=== PATIENT | female | born 1975 | race Caucasian/White ===

== ENCOUNTER → 2017-06-08 | Day surgery (SDC) | payer MEDICAID ==
[~2017-06-08] VITALS: Ht 157.5 cm; Wt 64.9 kg
[~2017-06-08] MED LIST: AMITRIPTYLINE100 MG PO; CYCLOBENZAPRINE10 MG PO; GABAPENTIN300 MG PO; HYDROCODONE-APA1 TA2 PO; LORTAB 5/3251 TAB PO; NEURONTIN600 M1 PO; NORTRIPTYLINE25 MG PO; TRAMADOL50 M1 PO
[2017-06-08 15:51] VITALS: BP 108/62
[2017-06-08 16:18] VITALS: BP 108/62
[2017-06-08 16:22] VITALS: BP 149/63
--- NOTE | 2017-06-08 16:24 | Procedure Note ---
Procedure detail Date of procedure: 06/08/17 Anesthesiologist: Ever Laurent Complications: None Pre-procedure diagnosis: Degenerative disease cervical spine multiple levels. Cervical radiculopathy symptoms. Post-procedure diagnosis: Same. Indications for procedure: Very pleasant 42-year-old white female comes our procedure clinic today for repeat caudal epidural steroid injection. Patient has consistent cervical neck pain that she describes as constant, dull, aching with bilateral arm radicular symptoms at times. Patient has responded very well to previous cervical epidural steroid injections. Procedure detail: Procedure:Cervical epidural steroid injection Informed consent was obtained and the risks and benefits of the procedure were explained to the patient. The patient was taken to the procedure room and noninvasive monitors placed, including noninvasive blood pressure cuff and pulse oximeter. The neck was prepped using Betadine as a cleansing solution. The C6-C7 interspace was palpated. The skin and subcutaneous tissues were anesthetized using lidocaine 1.5% and a 25-gauge needle. After this an 18-gauge Touhy epidural needle was placed into the C6-C7 interspace and advanced using loss of resistance to air until the epidural space was encountered. After confirmation of needle placement in the epidural space using fluoroscopy guidance, a solution containing lidocaine 1.5%, 4 mL and Depo-Medrol 80 mg was incrementally injected into the cervical epidural space.~ The patient tolerated the procedure well with no complications. The patient was observed in the Pain Clinic and then discharged home neurologically intact. Plan and disposition: Patient for evaluated to minutes post procedure. She is doing very well. She returns to further evaluation. at 1644
[2017-06-08 16:28] VITALS: BP 107/51
== END ==
LOC: PM 15:45
PROC: 3E0R3BZ Introduction of Anesthetic Agent into Spinal Canal, Percutaneous Approach (ICD-10-PCS; principal; 2017-06-08)
PROC: 3E0R33Z Introduction of Anti-inflammatory into Spinal Canal, Percutaneous Approach (ICD-10-PCS; 2017-06-08)
DX: M50.10 Cervical disc disorder with radiculopathy, unspecified cervical region (principal)
CPT/HCPCS: J1040; Q9966

== ENCOUNTER → 2017-07-22 | Outpatient (CLI) | payer MEDICAID ==
--- NOTE | 2017-07-23 11:20 | RADIOLOGY REPORT PS360 ---
MRI-C-SPINE W/O HISTORY: Right-sided neck and arm pain and numbness with limited range of motion of the neck CERVICAL PAIN ORDERING PHYSICIAN: BRYCE MCDOWELL CRNA PATIENT AGE: 42 years COMPARISON: 05/19/2016 TECHNIQUE: Standard multiplanar multiecho sequences are performed without contrast. 3-D MIP and myelographic images are also rendered and reviewed FINDINGS: Unremarkable craniocervical junction. Slight reversal the cervical lordosis. C2-C3: Minimal prominence of the posterior longitudinal ligament without impingement. C3-C4: There is a small central/left paracentral disc protrusion/herniation abutting the anterior aspect of the cord centrally and on the left. This is slightly larger when compared to the previous exam. There is canal stenosis at this level at 9 mm. C4-C5: Small central disc protrusion similar to the previous exam of face in the cord centrally with canal stenosis of 9 mm similar to the previous exam. C5-C6: Degenerative disc disease with bulging disc and broad-based Central and right paracentral disc osteophyte complex causing canal stenosis of 8 mm centrally effacing the cord anteriorly and on the right with right lateral recess and foraminal narrowing. There are type I endplate changes at this level which have developed since the previous exam the disc osteophyte complex self does not appear significantly changed. C6-C7 and C7-T1 are unremarkable. IMPRESSION: 1. C3-C4: There is a small central/left paracentral disc protrusion/herniation abutting the anterior aspect of the cord centrally and on the left. This is slightly larger when compared to the previous exam. There is canal stenosis at this level at 9 mm. 2. C4-C5: Small central disc protrusion similar to the previous exam of face in the cord centrally with canal stenosis of 9 mm similar to the previous exam. 3. C5-C6: Degenerative disc disease with bulging disc and broad-based Central and right paracentral disc osteophyte complex causing canal stenosis of 8 mm centrally effacing the cord anteriorly and on the right with right lateral recess and foraminal narrowing. There are type I endplate changes at this level which have developed since the previous exam the disc osteophyte complex self does not appear significantly changed IMPRESSION:
== END ==
LOC: RAD 13:41
DX: M54.2 Cervicalgia (principal)